=== PATIENT | female | born 1985 ===

== ENCOUNTER 2016-05-16 12:33 | Emergency (ER) | payer MEDICAID, SELFPAY ==
[2016-05-16 12:33] VITALS: BMI 28.1
[2016-05-16 12:48] VITALS: PULSE 64
[2016-05-16 12:54] VITALS: RESP 18; TEMP 98.3; O2SAT 98
--- NOTE | 2016-05-16 13:13 | ED PDOC ---
Arrival/HPI - General Chief Complaint: Female Genitourinary Time Seen by Provider: 05/16/16 12:49 Historian: Patient - History of Present Illness Narrative History of Present Illness (Text): 05/16/16 13:13 41 year old female , LMP approximately presents to the emergency department with vaginal spotting for 1 day. Patient states she is eating well. Denies abdominal pain, nausea, vomiting, fever, cough, hematuria, or dysuria. Time/Duration: 24 hours Symptom Onset: Gradual Symptom Course: Unchanged Modifying Factors (Text): None Associated Symptoms (Text): None Past Medical History - Provider Review Nursing Documentation Reviewed: Yes - Reproductive Menopause: No - Psychiatric Hx Depression: No Hx Emotional Abuse: No Hx Physical Abuse: No Hx Substance Use: No - Anesthesia Hx Anesthesia: Yes Hx Anesthesia Reactions: No Hx Malignant Hyperthermia: No - Suicidal Assessment Feels Threatened In Home Enviroment: No Family/Social History - Physician Review Nursing Documentation Reviewed: Yes Family/Social History: Unknown Family HX Smoking Status: Never Smoked Hx Alcohol Use: No Hx Substance Use: No Hx Substance Use Treatment: No Allergies/Home Meds Allergies/Adverse Reactions: Allergies ampicillin Adverse Reaction (Verified 05/16/16 12:50) URTICARIA Penicillins Adverse Reaction (Verified 05/16/16 12:50) URTICARIA Sulfa (Sulfonamide Antibiotics) Adverse Reaction (Verified 05/16/16 12:50) URTICARIA Home Medications: Home Meds Medication Instructions Recorded Confirmed No Known Home Med 12/25/11 12/25/11 Review of Systems - Physician Review All systems were reviewed & negative as marked: Yes - Review of Systems Constitutional: absent: Fevers Respiratory: absent: Cough Gastrointestinal: absent: Abdominal Pain, Nausea, Vomiting Genitourinary Female: Other (Vaginal spotting). absent: Dysuria, Hematuria Physical Exam Vital Signs Reviewed: Yes Vital Signs Temp Pulse Resp BP Pulse Ox 05/16/16 15:49 64 115/65 05/16/16 12:54 98.3 F 64 18 110/67 98 05/16/16 12:33 98.6 F 64 16 110/67 100 Temperature: Afebrile Blood Pressure: Normal Pulse: Regular Respiratory Rate: Normal Appearance: Positive for: Well-Appearing, Non-Toxic, Comfortable Pain Distress: None Mental Status: Positive for: Alert and Oriented X 3 - Systems Exam Head: Present: Atraumatic, Normocephalic Pupils: Present: PERRL Extroacular Muscles: Present: EOMI Conjunctiva: Present: Normal Mouth: Present: Moist Mucous Membranes Neck: Present: Normal Range of Motion Respiratory/Chest: Present: Clear to Auscultation, Good Air Exchange. No: Respiratory Distress, Accessory Muscle Use Cardiovascular: Present: Regular Rate and Rhythm, Normal S1, S2. No: Murmurs Abdomen: Present: Normal Bowel Sounds. No: Tenderness, Distention, Peritoneal Signs Back: Present: Normal Inspection Upper Extremity: Present: Normal Inspection. No: Cyanosis, Edema Lower Extremity: Present: Normal Inspection. No: Edema Neurological: Present: GCS=15, CN II-XII Intact, Speech Normal Skin: Present: Warm, Dry, Normal Color. No: Rashes Psychiatric: Present: Alert, Oriented x 3, Normal Insight, Normal Concentration Medical Decision Making ED Course and Treatment: Impression: 41 year old female , LMP approximately presents to the emergency department with vaginal spotting for 1 day. Plan: -- US transvaginal -- Labs -- Reassess and disposition Progress Notes: - Lab Interpretations Lab Results: 05/16/16 13:50 05/16/16 13:50 Lab Results 05/16/16 13:50: WBC 8.9, RBC 4.75, Hgb 8.2 L, Hct 28.2 L, MCV 59.4 L, MCH 17.3 L , MCHC 29.1 L, RDW 20.3 H, Plt Count 274, MPV 8.7, Gran % 66.6, Lymph % (Auto) 23.0, [place] % (Auto) 8.4 H, Eos % (Auto) 1.8, Baso % (Auto) 0.2, Gran # 5.95, Lymph # 2.1, [place] # 0.8 H, Eos # 0.2, Baso # 0.02, Sodium 134, Potassium 4.3, Chloride 106, Carbon Dioxide 23, Anion Gap 9 L, BUN 8, Creatinine 0.7, Est GFR ( Amer) > 60, Est GFR (Non-Af Amer) > 60, Random Glucose 94, Calcium 8.9, Total Bilirubin 0.5, AST 19, ALT 8, Alkaline Phosphatase 48, Total Protein 6.7, Albumin 3.4, Globulin 3.3, Albumin/Globulin Ratio 1.0 L, Beta HCG, Quant 70856.00 H 05/16/16 13:30: Urine Color Yellow, Urine Appearance Cloudy, Urine pH 6.0, Ur Specific [place] >= 1.030, Urine Protein 30 H, Urine Glucose (UA) Negative, Urine Ketones Negative, Urine Blood Large H, Urine Nitrate Negative, Urine Bilirubin Negative, Urine Urobilinogen 1.0 H, Ur Leukocyte Esterase Moderate H, Urine RBC 1 - 3, Urine WBC 1 - 3, Ur Epithelial Cells 3 - 4 - RAD Interpretation Narrative RAD Interpretations (Text): US Transvaginal Compounding Scaler : DR. Hennessy, Mis Mendoza MD Indication: vaginal spotting. approx. 8 wks preg. Comparison: None available Technique: Transvaginal pelvic ultrasound. Findings: The uterus measures approximately 11.4 x 7.8 x 7.8 cm. Intrauterine gestational sac measures approximately 1 cm, out of range for gestational age calculation. No evidence of yolk sac or pole at this time. The right ovary measures 1.9 x 1.4 x 1.7 cm and contains 1.1 x 1.0 x 1.0 cm follicle/ cyst. The left ovary measures 3.2 x 1.7 x 1.5 cm. Blood flow was demonstrated to both ovaries. Impression: Intrauterine gestational sac, too small for gestational age calculation. No evidence of yolk sac or pole at this time. Recommend correlation with quantitative beta HCG, PBX TECHNICIAN consultation, and short-term follow-up. Radiology Orders: 05/16/16 13:16 OB TRANSVAGINAL [US] Stat Motorcycle Subassembler: Radiologist - Medication Orders Current Medication Orders: Discontinued Medications Sodium Chloride (Sodium Chloride 0.9%) 1,000 mls @ 999 mls/hr IV .Q1H1M STA Stop: 05/16/16 14:17 Last Admin: 05/16/16 15:42 Dose: Not Given Non-Admin Reason: Patient Refused - Scribe Statement The provider has reviewed the documentation as recorded by the Cholo Rios Provider Scribe Attestation: All medical record entries made by the Scribe were at my direction and personally dictated by me. I have reviewed the chart and agree that the record accurately reflects my personal performance of the history, physical exam, medical decision making, and the department course for this patient. I have also personally directed, reviewed, and agree with the discharge instructions and disposition. Disposition/Present on Arrival - Present on Arrival Any Indicators Present on Arrival: No History of DVT/PE: No History of Uncontrolled Diabetes: No Urinary Catheter: No History of Decub. Ulcer: No History Surgical Site Infection Following: None - Disposition Have Diagnosis and Disposition been Completed?: Yes Diagnosis: Vaginal bleeding before 22 weeks gestation Disposition: HOME/ ROUTINE Disposition Time: 15:15 Patient Plan: Discharge Condition: STABLE Discharge Instructions (ExitCare): First Trimester Vaginal Bleed (ED) Additional Instructions: Thank you for letting us take care of you today. Your provider was Dr. Lopes. You were treated for vaginal bleeding during your first trimester. The emergency medical care you received today was directed at your acute symptoms. If you were prescribed any medication, please fill it and take as directed. It may take several days for your symptoms to resolve. Return to the Emergency Department if your symptoms worsen, do not improve, or if you have any other problems. Please contact your doctor or call one of the physicians/clinics you have been referred to that are listed on the Patient Visit Information form that is included in your discharge packet. Bring any paperwork you were given at discharge with you along with any medications you are taking to your follow up visit. Our treatment cannot replace ongoing medical care by a primary care provider (PCP) outside of the emergency department. Thank you for allowing the [facility] team to be part of your care today. Follow up with your DIRECTOR OF RESIDENTIAL SERVICES doctor this week for re-evaluation. Your B-HCG (hormone level) was 16,067 Referrals: Pelon Augustine MD [Primary Care Provider] - Follow up with primary
[2016-05-16] MEDS ORDERED: Sodium Chloride 0.9% 1,000 ML IV STA (13:17)
[2016-05-16 13:52] LABS: ADD MANUAL DIFF? NO
[2016-05-16 13:58] LABS: BASO # 0.02 K/mm3 (0.0-2.0); BASO % 0.2 % (0.0-3.0); EOS # 0.2 (0.0-0.7); EOS % 1.8 % (1.5-5.0); GRAN # 5.95 (1.4-6.5); GRAN % 66.6 % (50.0-68.0); HEMATOCRIT 28.2 % (36.0-48.0); LYMPH # 2.1 (1.2-3.4); MEAN CELL VOLUME 59.4 fL (80.0-105.0); MEAN CORPUSCULAR HEMOGLOBIN 17.3 pg (25.0-35.0); MEAN CORPUSCULAR HGB CONC 29.1 g/dl (31.0-37.0); MEAN PLATELET VOLUME 8.7 fl (7.0-11.0); MONO # 0.8 (0.1-0.6); MONO % 8.4 % (1.0-6.0); PLATELET COUNT 274 10^3/uL (120.0-450.0); RED CELL DISTRIBUTION WIDTH 20.3 % (11.5-14.5); WHITE BLOOD COUNT 8.9 10^3/ul (4.5-11.0)
[2016-05-16 14:09] LABS: ALKALINE PHOSPHATASE 48 U/L (38-133); ALT/SGPT 8 U/L (7-56); AST/SGOT 19 U/L (15-39); BILIRUBIN,TOTAL 0.5 mg/dL (0.2-1.3); BLOOD UREA NITROGEN 8 mg/dL (7-21); CALCIUM 8.9 mg/dL (8.4-10.5); CARBON DIOXIDE 23 mmol/L (21-33); CHLORIDE 106 mmol/L (98-107); GFR AFRICAN-AMERICAN > 60; GLUCOSE,RANDOM 94 mg/dL (70-110); POTASSIUM 4.3 mmol/L (3.6-5.0); SODIUM 134 mmol/L (132-148); TOTAL PROTEIN 6.7 g/dL (5.8-8.3)
[2016-05-16 14:28] LABS: URINE BILIRUBIN NEGATIVE (NEGATIVE); URINE BLOOD LARGE (NEGATIVE); URINE GLUCOSE (UA) NEGATIVE (NEGATIVE); URINE KETONE NEGATIVE (NEGATIVE); URINE LEUKOCYTE ESTERASE MODERATE Leu/uL (NEGATIVE); URINE PROTEIN 30 mg/dL (<30 mg/dL)
[2016-05-16 14:46] LABS: URINE APPEARANCE CLOUDY (CLEAR); URINE COLOR YELLOW (YELLOW)
--- NOTE | 2016-05-16 15:15 | US ---
Indication: vaginal spotting. approx. 8 wks preg. Comparison: None available Technique: Transvaginal pelvic ultrasound. Findings: The uterus measures approximately 11.4 x 7.8 x 7.8 cm. Intrauterine gestational sac measures approximately 1 cm, out of range for gestational age calculation. No evidence of yolk sac or pole at this time. The right ovary measures 1.9 x 1.4 x 1.7 cm and contains 1.1 x 1.0 x 1.0 cm follicle/ cyst. The left ovary measures 3.2 x 1.7 x 1.5 cm. Blood flow was demonstrated to both ovaries. Impression: Intrauterine gestational sac, too small for gestational age calculation. No evidence of yolk sac or pole at this time. Recommend correlation with quantitative beta HCG, HAM ROLLING MACHINE OPERATOR consultation, and short-term follow-up.
[2016-05-16 15:50] VITALS: BP 115/65
== END 2016-05-16 15:52 | disposition home or self-care (01) ==
LOC: ED 12:33
DX: O46.91 Antepartum hemorrhage, unspecified, first trimester (principal); Z3A.08 8 weeks gestation of pregnancy

== ENCOUNTER 2017-04-11 11:40 | Emergency (ER) | payer MEDICAID ==
[2017-04-11] MEDS ORDERED: Sodium Chloride 0.9% 1,000 ML IV STA (12:53)
--- NOTE | 2017-04-11 13:04 | ED PDOC ---
Arrival/HPI - General Time Seen by Provider: 04/11/17 12:52 Historian: Patient - History of Present Illness Narrative History of Present Illness (Text): 04/11/17 12:53 Maria A Benavides is a 31 year old female , 9 weeks based on LMP, who presents to the emergency department complaining of vaginal bleeding for 3 days. Patient describes vaginal bleed as spotting with no clots. Patient denies any abdominal pain, urinary complaints, or any other complaints at this time. Time/Duration: < week Symptom Onset: Gradual Symptom Course: Intermittent Activities at Onset: Light Context: Home Past Medical History - Provider Review Nursing Documentation Reviewed: Yes - Psychiatric Hx Depression: No Hx Emotional Abuse: No Hx Physical Abuse: No Hx Substance Use: No - Anesthesia Hx Anesthesia: Yes Hx Anesthesia Reactions: No Hx Malignant Hyperthermia: No - Suicidal Assessment Feels Threatened In Home Enviroment: No Family/Social History - Physician Review Nursing Documentation Reviewed: Yes Family/Social History: No Known Family HX Smoking Status: Never Smoked Hx Alcohol Use: No Hx Substance Use: No Hx Substance Use Treatment: No Allergies/Home Meds Allergies/Adverse Reactions: Allergies ampicillin Adverse Reaction (Verified 05/16/16 12:50) URTICARIA Penicillins Adverse Reaction (Verified 05/16/16 12:50) URTICARIA Sulfa (Sulfonamide Antibiotics) Adverse Reaction (Verified 05/16/16 12:50) URTICARIA Home Medications: Home Meds Medication Instructions Recorded Confirmed No Known Home Med 12/25/11 12/25/11 Review of Systems - Physician Review All systems were reviewed & negative as marked: Yes - Review of Systems Constitutional: absent: Fevers, Night Sweats Eyes: absent: Vision Changes ENT: absent: Hearing Changes Respiratory: absent: SOB, Cough Cardiovascular: absent: Chest Pain Gastrointestinal: absent: Abdominal Pain Genitourinary Female: Vaginal Bleeding. absent: Dysuria, Frequency, Urine Output Changes Musculoskeletal: absent: Arthralgias Skin: absent: Rash, Pruritis Neurological: absent: Headache, Dizziness Endocrine: absent: Diaphoresis Hemo/Lymphatic: absent: Adenopathy Psychiatric: absent: Anxiety, Depression Physical Exam Vital Signs Reviewed: Yes Vital Signs Temp Pulse Resp BP Pulse Ox 04/11/17 13:08 98.4 F 69 18 128/68 100 - Systems Exam Head: Present: Atraumatic, Normocephalic Pupils: Present: PERRL Extroacular Muscles: Present: EOMI Conjunctiva: Present: Normal Mouth: Present: Moist Mucous Membranes Neck: Present: Normal Range of Motion Respiratory/Chest: Present: Clear to Auscultation, Good Air Exchange. No: Respiratory Distress, Accessory Muscle Use Cardiovascular: Present: Regular Rate and Rhythm, Normal S1, S2. No: Murmurs Abdomen: Present: Normal Bowel Sounds. No: Tenderness, Distention, Peritoneal Signs Back: Present: Normal Inspection Upper Extremity: Present: Normal Inspection. No: Cyanosis, Edema Lower Extremity: Present: Normal Inspection. No: Edema Neurological: Present: GCS=15, CN II-XII Intact, Speech Normal Skin: Present: Warm, Dry, Normal Color. No: Rashes Psychiatric: Present: Alert, Oriented x 3, Normal Insight, Normal Concentration Medical Decision Making ED Course and Treatment: 04/11/17 13:05 Impression: 31 year old female complaining of vaginal spotting for 3 days. Differential Diagnosis included but are not limited to: Threatened vs. ectopic Plan: -- Transvagnial US -- Urinalysis -- Labs -- IV Fluids -- Reassess and disposition Prior Visits: Notes and results from previous visits were reviewed. Patient was last seen in the emergency department on 05/16/16 for vaginal spotting for 1 day. Patient was discharged home. Progress Notes: 04/11/17 15:00 Nurse informed me that patient walked out after ultrasound without informing staff. Blood type O+. UA positive. Bhcg>8000. 04/11/17 15:23 U/s resulted after patient walked out shows Single intrauterine gestational sac with mean gestational age of 5 weeks and 4 days. pole and yolk sac are not visualized on the current examination. The ultrasound is 12/08/2017. There is a discrepancy with the clinical dates. Clinical and imaging follow-up is advised to confirm viability. Called both number of patient and patient's mother who was listed as next of kin to make her aware of ultrasound results and need for antibiotics for uti. Neither are working numbers. \ - Lab Interpretations Lab Results: 04/11/17 13:20 04/11/17 13:20 Lab Results 04/11/17 14:00: Blood Type Confirm O POSITIVE 04/11/17 13:20: Blood Type O POSITIVE, Antibody Screen Negative, BBK History Checked No verified bt 04/11/17 13:20: Beta HCG, Quant 8180.50 H 04/11/17 13:20: Sodium 138, Potassium 4.6, Chloride 107, Carbon Dioxide 23, Anion Gap 12, BUN 9, Creatinine 0.6 L, Est GFR ( Amer) > 60, Est GFR (Non -Af Amer) > 60, Random Glucose 108, Calcium 9.1, Total Bilirubin 0.2, AST 19, ALT 20, Alkaline Phosphatase 52, Total Protein 6.1, Albumin 3.3, Globulin 2.7, Albumin/Globulin Ratio 1.2 04/11/17 13:20: WBC 8.4, RBC 4.83, Hgb 8.2 L, Hct 29.0 L, MCV 60.0 L, MCH 17.0 L , MCHC 28.3 L, RDW 19.0 H, Plt Count 268, MPV 8.8, Gran % 66.1, Lymph % (Auto) 23.3, [place] % (Auto) 8.3 H, Eos % (Auto) 2.1, Baso % (Auto) 0.2, Gran # 5.57, Lymph # (Auto) 2.0, [place] # (Auto) 0.7 H, Eos # (Auto) 0.2, Baso # (Auto) 0.02 04/11/17 13:17: Urine Color Yellow, Urine Appearance Clear, Urine pH 7.0, Ur Specific [place] 1.020, Urine Protein Negative, Urine Glucose (UA) Negative, Urine Ketones Negative, Urine Blood Moderate H, Urine Nitrate Negative, Urine Bilirubin Negative, Urine Urobilinogen 0.2, Ur Leukocyte Esterase Small H, Urine RBC 15 - 20, Urine WBC 10 - 15, Ur Epithelial Cells 6 - 8, Amorphous Sediment Few, Urine Bacteria Many, Urine Other [place] - RAD Interpretation Radiology Orders: 04/11/17 12:53 OB TRANSVAGINAL [US] Stat - Medication Orders Current Medication Orders: Discontinued Medications Sodium Chloride (Sodium Chloride 0.9%) 1,000 mls @ 999 mls/hr IV .Q1H1M STA Stop: 04/11/17 13:53 Last Admin: 04/11/17 13:43 Dose: Not Given Non-Admin Reason: Patient Refused - Scribe Statement The provider has reviewed the documentation as recorded by the Cholo Nielson Provider Scribe Attestation: All medical record entries made by the Scribe were at my direction and personally dictated by me. I have reviewed the chart and agree that the record accurately reflects my personal performance of the history, physical exam, medical decision making, and the department course for this patient. I have also personally directed, reviewed, and agree with the discharge instructions and disposition. Disposition/Present on Arrival - Present on Arrival Any Indicators Present on Arrival: No History of DVT/PE: No History of Uncontrolled Diabetes: No Urinary Catheter: No History Surgical Site Infection Following: None - Disposition Have Diagnosis and Disposition been Completed?: Yes Diagnosis: Threatened Disposition: LEFT W/O TREATMENT - ER ONLY Disposition Time: 15:01 Condition: UNKNOWN Referrals: Pelon Augustine MD [Primary Care Provider] - Follow up with primary
[2017-04-11 13:09] VITALS: BP 128/68; PULSE 69; RESP 18; TEMP 98.4; O2SAT 100
[2017-04-11 13:24] LABS: URINE BILIRUBIN NEGATIVE (NEGATIVE); URINE BLOOD MODERATE (NEGATIVE); URINE GLUCOSE (UA) NEGATIVE (NEGATIVE); URINE LEUKOCYTE ESTERASE SMALL Leu/uL (NEGATIVE); URINE NITRATE NEGATIVE (NEGATIVE); URINE PROTEIN NEGATIVE mg/dL (<30 mg/dL); URINE UROBILINOGEN 0.2 E.U./dL (<1 E.U./dL)
[2017-04-11 13:25] LABS: URINE APPEARANCE CLEAR (CLEAR); URINE COLOR YELLOW (YELLOW)
[2017-04-11 13:39] LABS: URINE AMORPHOUS SEDIMENT FEW; URINE BACTERIA MANY (NEG); URINE RBC 15 - 20 /hpf (0-2)
[2017-04-11 13:46] LABS: BASO # 0.02 K/mm3 (0.0-2.0); BASO % 0.2 % (0.0-3.0); EOS # 0.2 (0.0-0.7); EOS % 2.1 % (1.5-5.0); GRAN # 5.57 (1.4-6.5); GRAN % 66.1 % (50.0-68.0); HEMOGLOBIN 8.2 g/dL (12.0-16.0); LYMPH % 23.3 % (22.0-35.0); MEAN CORPUSCULAR HGB CONC 28.3 g/dl (31.0-37.0); MEAN PLATELET VOLUME 8.8 fl (7.0-11.0); MONO # 0.7 (0.1-0.6); MONO % 8.3 % (1.0-6.0); RBC 4.83 10^6/uL (3.5-6.1); WHITE BLOOD COUNT 8.4 10^3/ul (4.5-11.0)
[2017-04-11 13:50] LABS: ALB/GLOB RATIO 1.2 (1.1-1.8); ALBUMIN 3.3 g/dL (3.0-4.8); ALT/SGPT 20 U/L (7-56); AST/SGOT 19 U/L (14-36); BLOOD UREA NITROGEN 9 mg/dL (7-21); CALCIUM 9.1 mg/dL (8.4-10.5); GFR AFRICAN-AMERICAN > 60; GFR NON-AFRICAN AMERICAN > 60
--- NOTE | 2017-04-11 15:20 | US ---
PROCEDURE: OB Pelvic Ultrasound HISTORY: , bleeding COMPARISON: 05/25/2016. TECHNIQUE: Transabdominal and transvaginal pelvic ultrasound was performed with FINDINGS: UTERUS: Single intrauterine gestation. Gestational sac diameter measures 1.32 cm equivalent to 5 wks/ 4 days gestation Yolk sac and pole are not visualized on the current examination. age (Ultrasound estimated): 5 weeks and 4 days Date of delivery (Ultrasound estimated) : 12/08/2017 Deena-gestational hemorrhage: None. Uterus measures 12.8 x 5.4 x 0.4 cm. Anteverted and bulky in size and appearance. There is a 9 x 7 x 9 mm anterior wall intramural fibroid to the right. CERVIX: Long and closed. No cervical abnormality seen. RIGHT OVARY: Not visualized. LEFT OVARY: Measures 2.9 x 2.2 x 2.0 cm. No mass. Normal flow. There is a 2.3 x 1.9 x 1.8 cm complicated cyst. FREE FLUID: None. OTHER FINDINGS: None. IMPRESSION: Single intrauterine gestational sac with mean gestational age of 5 weeks and 4 days. pole and yolk sac are not visualized on the current examination. The ultrasound is 12/08/2017. There is a discrepancy with the clinical dates. Clinical and imaging follow-up is advised to confirm viability.
== END 2017-04-11 15:04 | disposition left against medical advice (07) ==
LOC: ED 11:40
DX: O20.0 Threatened abortion (principal); Z3A.01 Less than 8 weeks gestation of pregnancy